=== PATIENT | male | born 1990 | race Caucasian/White ===

== ENCOUNTER 2017-03-21 09:17 | Inpatient (IN) | payer MEDICAID ==
[~2017-03-21] VITALS: Ht 182.9 cm; Wt 59.9 kg
[2017-03-21] MEDS ORDERED: HALOPERIDOL LACTATE 5 MG/ML VIAL IM ONE (09:30)
[2017-03-21] MEDS ORDERED: DiphenhydrAMINE HCL 50 MG/ML VIAL IM ONE (09:30)
[2017-03-21] MEDS ORDERED: LORazepam 2 MG/ML VIAL IM ONE (09:30)
[2017-03-21 09:37] LABS: GLUCOSE,POINT OF CARE 91 MG/DL (70-110)
[2017-03-21 09:57] LABS: BASOPHILS % (AUTO) 0.6 % (0.0-2.0); EOSINOPHILS % (AUTO) 0.2 % (1.0-6.0); HEMATOCRIT 47.7 % (41-53); HEMOGLOBIN 15.6 g/dL (13.5-17.5); LYMPHOCYTES # (AUTO) 1.2 K/uL (1.0-4.8); MEAN CORPUSCULAR HEMOGLOBIN 29.2 pg (26.0-34.0); MEAN CORPUSCULAR HGB CONC 32.7 G/dL (31.0-37.0); MEAN CORPUSCULAR VOLUME 89 fL (80-100); MONOCYTES # (AUTO) 0.8 K/uL (0.1-1.0); MONOCYTES % (AUTO) 8.6 % (2.0-9.0); NEUTROPHILS # (AUTO) 7.3 K/uL (1.8-7.7); NEUTROPHILS % (AUTO) 77.6 % (40.0-70.0); PLATELET COUNT (AUTO) 296 K/uL (150-450); RED BLOOD CELL COUNT(AUTO) 5.34 MIL/uL (4.50-5.90); RED CELL DISTRIBUTION WIDTH 12.6 % (11.5-14.5); WHITE BLOOD COUNT (AUTO) 9.4 K/uL (4.5-11.0)
[2017-03-21 10:05] LABS: ANION GAP 14 mmol/L (8-16); CALCIUM, TOTAL 9.6 mg/dL (8.8-10.5); CARBON DIOXIDE 25 mmol/L (22-29); CHLORIDE 99 mmol/L (98-107); CREATININE 1.18 mg/dL (0.60-1.30); GLOMERULAR FILTR. RATE CALC > 60 mL/min (>60); POTASSIUM 3.5 mmol/L (3.5-5.1); SODIUM SERUM 138 mmol/L (136-145); UREA NITROGEN, BLOOD 18 mg/dL (7-18)
[2017-03-21 10:11] LABS: ALANINE AMINOTRANSFERASE 59 U/L (12-78); ALBUMIN 4.7 g/dL (3.4-5.0); ASPARTATE AMINOTRANSFERASE 27 U/L (15-37); BILIRUBIN,TOTAL 1.7 mg/dL (0.1-1.0); TOTAL PROTEIN, SERUM 8.4 g/dL (6.4-8.2)
[2017-03-21] MEDS ORDERED: ZOLPIDEM TARTRATE 10 MG TABLET PO PRN (10:15)
[2017-03-21] MEDS ORDERED: HALOPERIDOL 5 MG TABLET PO PRN (10:15)
[2017-03-21] MEDS ORDERED: LORazepam 2 MG TABLET PO PRN (10:15)
[2017-03-21 14:11] VITALS: BP 127/84
[2017-03-22 05:58] VITALS: BP 123/80
[2017-03-22 09:06] VITALS: BP 153/108
[2017-03-22] MEDS ORDERED: ACETAMINOPHEN 325 MG TABLET PO PRN (13:00)
[2017-03-22] MEDS ORDERED: IBUPROFEN 600 MG TABLET PO PRN (13:00)
[2017-03-22 13:35] VITALS: BP 142/84
[2017-03-22] MEDS: CloNIDine HCL 0.2 MG TABLET PO SCH ×2 (13:37→17:00)
[2017-03-22 17:12] VITALS: BP 117/72
[2017-03-22] MEDS: OLANZapine 5 MG TABLET PO SCH (20:58)
[2017-03-23 04:00] VITALS: BP 130/94
[2017-03-23 08:04] VITALS: BP 130/84
[2017-03-23] MEDS: CloNIDine HCL 0.2 MG TABLET PO SCH ×2 (08:25→17:00)
[2017-03-23 16:47] VITALS: BP 125/70
[2017-03-23] MEDS: OLANZapine 5 MG TABLET PO SCH (21:05)
[2017-03-24 08:29] VITALS: BP 149/92
[2017-03-24] MEDS: CloNIDine HCL 0.2 MG TABLET PO SCH (09:03)
[2017-03-24] MEDS ORDERED: CLON.1 PO (11:16)
[2017-03-24] MEDS ORDERED: OLAN5TAB2 PO (11:17)
[2017-03-24] MEDS ORDERED: CloNIDine HCL 0.1 MG TABLET PO SCH (17:00)
== END 2017-03-24 14:40 | disposition home or self-care (01) | DRG 751 ==
LOC: EMS 09:20 → 3EC 12:40
DX: F29 Unspecified psychosis not due to a substance or known physiological condition (principal); Z78.1 Physical restraint status; F41.9 Anxiety disorder, unspecified; F12.90 Cannabis use, unspecified, uncomplicated; F19.90 Other psychoactive substance use, unspecified, uncomplicated; F17.210 Nicotine dependence, cigarettes, uncomplicated; Z71.51 Drug abuse counseling and surveillance of drug abuser
CPT/HCPCS: 82962; 96372; 99291; G0480; J1200; J1630; J2060

== ENCOUNTER 2018-02-20 14:51 | Inpatient (IN) | payer MEDICAID, OTHER ==
[~2018-02-20] VITALS: Ht 175.3 cm; Wt 63.5 kg
[~2018-02-20 14:51] MED LIST: CLON-570 PO; OLAN5TAB2 PO
[2018-02-20 15:46] LABS: BASOPHILS % (AUTO) 0.5 % (0.0-2.0); EOSINOPHILS % (AUTO) 0 % (1.0-6.0); HEMATOCRIT 44.2 % (41-53); HEMOGLOBIN 15.1 g/dL (13.5-17.5); LYMPHOCYTES # (AUTO) 1.6 K/uL (1.0-4.8); MEAN CORPUSCULAR HEMOGLOBIN 29.1 pg (26.0-34.0); MEAN CORPUSCULAR HGB CONC 34.2 G/dL (31.0-37.0); MEAN CORPUSCULAR VOLUME 85 fL (80-100); MONOCYTES # (AUTO) 0.6 K/uL (0.1-1.0); MONOCYTES % (AUTO) 7.7 % (2.0-9.0); NEUTROPHILS # (AUTO) 5.9 K/uL (1.8-7.7); NEUTROPHILS % (AUTO) 72.8 % (40.0-70.0); PLATELET COUNT (AUTO) 310 K/uL (150-450); RED CELL DISTRIBUTION WIDTH 13.5 % (11.5-14.5)
[2018-02-20 16:03] LABS: ANION GAP 8 mmol/L (8-16); CALCIUM, TOTAL 9.4 mg/dL (8.8-10.5); CARBON DIOXIDE 30 mmol/L (22-29); CHLORIDE 102 mmol/L (98-107); CREATININE 0.82 mg/dL (0.60-1.30); GLOMERULAR FILTR. RATE CALC > 60 mL/min (>60); GLUCOSE,RANDOM 101 mg/dL (70-110); SODIUM SERUM 140 mmol/L (136-145); UREA NITROGEN, BLOOD 10 mg/dL (7-18)
[2018-02-20 16:06] LABS: ALANINE AMINOTRANSFERASE 31 U/L (12-78); ALBUMIN 4.3 g/dL (3.4-5.0); ALKALINE PHOSPHATASE 108 U/L (46-116); ASPARTATE AMINOTRANSFERASE 18 U/L (15-37); BILIRUBIN,TOTAL 0.4 mg/dL (0.1-1.0); TOTAL PROTEIN, SERUM 7.8 g/dL (6.4-8.2)
[2018-02-20] MEDS ORDERED: HALOPERIDOL LACTATE 5 MG/ML VIAL IM ONE (16:15)
[2018-02-20] MEDS ORDERED: DiphenhydrAMINE HCL 50 MG/ML VIAL IM ONE (16:15)
[2018-02-20] MEDS ORDERED: LORazepam 2 MG/ML VIAL IM ONE (16:15)
[2018-02-20 19:41] LABS: AMPHET/METH SCREEN,URINE NEGATIVE (NEGATIVE); BARBITURATE SCREEN, URINE NEGATIVE (NEGATIVE); BENZODIAZEPINES SCREEN,URINE NEGATIVE (NEGATIVE); CANNABINOID SCREEN,URINE POSITIVE (NEGATIVE); COCAINE SCREEN,URINE NEGATIVE (NEGATIVE); METHADONE SCREEN, URINE NEGATIVE (NEGATIVE); OPIATE SCREEN,URINE NEGATIVE (NEGATIVE)
[2018-02-20 19:43] LABS: PHENCYCLIDINE SCREEN,URINE NEGATIVE (NEGATIVE)
[2018-02-21] MEDS: HALOPERIDOL 5 MG TABLET PO PRN ×3 (01:49→15:14)
[2018-02-21] MEDS: LORazepam 2 MG TABLET PO PRN ×3 (01:49→15:14)
[2018-02-21 02:16] LABS: CHOL/HDL RATIO 3.4 (4.2-7.3); CHOLESTEROL 188 mg/dL (131-200); HDL CHOLESTEROL 56 mg/dL (40-60); LDL CHOL (CALC.) 121 mg/dL (0-130); TRIGLYCERIDES 57 mg/dL (15-150)
[2018-02-21] MEDS: ZOLPIDEM TARTRATE 10 MG TABLET PO PRN (19:16)
[2018-02-22] MEDS: LORazepam 2 MG TABLET PO PRN ×3 (00:43→16:09)
[2018-02-22] MEDS ORDERED: INFLUENZA VIRUS VACCINE QVS 2017-18 (3YR+)/PF 60 MCG/0.5 ML SYRINGE IM ONE (01:30)
[2018-02-22 01:39] VITALS: BP 121/72
[2018-02-22 08:10] VITALS: BP 140/69
[2018-02-22] MEDS: HALOPERIDOL 5 MG TABLET PO PRN ×2 (09:16→16:09)
[2018-02-22 16:00] VITALS: BP 118/83
[2018-02-22] MEDS ORDERED: OLANZapine 10 MG RAPDIS TABLET PO SCH (21:00)
[2018-02-23 05:49] VITALS: BP 122/81
[2018-02-23 08:08] VITALS: BP 137/80
[2018-02-23] MEDS: LORazepam 2 MG TABLET PO PRN ×2 (12:52→16:52)
[2018-02-23] MEDS: HALOPERIDOL 5 MG TABLET PO PRN ×2 (12:52→16:52)
[2018-02-23 16:00] VITALS: BP 133/69
[2018-02-23] MEDS: OLANZapine 10 MG RAPDIS TABLET PO SCH (20:39)
[2018-02-23] MEDS: ZOLPIDEM TARTRATE 10 MG TABLET PO PRN (20:39)
[2018-02-24 05:10] VITALS: BP 149/87
[2018-02-24] MEDS: OLANZapine 10 MG RAPDIS TABLET PO SCH ×2 (08:00→20:22)
[2018-02-24 08:31] VITALS: BP_SYST 136; BP_SYST 144; BP_DIAS 60; BP_DIAS 84
[2018-02-24] MEDS: LORazepam 2 MG TABLET PO PRN (16:01)
[2018-02-24] MEDS: HALOPERIDOL 5 MG TABLET PO PRN (16:01)
[2018-02-24 16:07] VITALS: BP 140/88
[2018-02-24] MEDS: ZOLPIDEM TARTRATE 10 MG TABLET PO PRN (20:22)
[2018-02-25 07:15] VITALS: BP 129/75
[2018-02-25 08:09] VITALS: BP 138/71
[2018-02-25] MEDS: OLANZapine 10 MG RAPDIS TABLET PO SCH ×2 (08:15→20:40)
[2018-02-25] MEDS: LORazepam 2 MG TABLET PO PRN (13:21)
[2018-02-25 16:00] VITALS: BP 119/74
[2018-02-25] MEDS: ZOLPIDEM TARTRATE 10 MG TABLET PO PRN (20:40)
[2018-02-26 00:48] VITALS: BP 121/91
[2018-02-26 08:27] VITALS: BP 125/65
[2018-02-26] MEDS: OLANZapine 10 MG RAPDIS TABLET PO SCH ×2 (08:39→20:28)
[2018-02-26 16:06] VITALS: BP 122/70
[2018-02-26] MEDS: LORazepam 2 MG TABLET PO PRN (16:08)
[2018-02-27 00:19] VITALS: BP 124/76
[2018-02-27 08:06] VITALS: BP 120/65
[2018-02-27] MEDS: LORazepam 2 MG TABLET PO PRN ×3 (08:16→20:33)
[2018-02-27] MEDS: OLANZapine 10 MG RAPDIS TABLET PO SCH (08:16)
[2018-02-27 16:08] VITALS: BP 108/69
[2018-02-27] MEDS: OLANZapine 5 MG RAPDIS TABLET PO SCH (20:33)
[2018-02-28 05:52] VITALS: BP 120/73
[2018-02-28 08:00] VITALS: BP 125/70
[2018-02-28] MEDS: OLANZapine 5 MG RAPDIS TABLET PO SCH ×2 (08:08→20:18)
[2018-02-28 16:12] VITALS: BP 119/79
[2018-02-28] MEDS: HALOPERIDOL 5 MG TABLET PO PRN (16:32)
[2018-02-28] MEDS: LORazepam 2 MG TABLET PO PRN (16:32)
[2018-03-01 05:49] VITALS: BP 122/78
[2018-03-01 08:17] VITALS: BP 139/71
[2018-03-01] MEDS: OLANZapine 5 MG RAPDIS TABLET PO SCH ×2 (09:21→20:12)
[2018-03-01] MEDS: LORazepam 2 MG TABLET PO PRN (15:41)
[2018-03-01] MEDS: HALOPERIDOL 5 MG TABLET PO PRN (15:41)
[2018-03-01 16:25] VITALS: BP 112/69
[2018-03-01] MEDS: ZOLPIDEM TARTRATE 10 MG TABLET PO PRN (21:10)
[2018-03-02 02:59] VITALS: BP 116/78
[2018-03-02 08:10] VITALS: BP 131/68
[2018-03-02] MEDS: LORazepam 2 MG TABLET PO PRN ×2 (08:43→16:32)
[2018-03-02] MEDS: OLANZapine 5 MG RAPDIS TABLET PO SCH ×2 (08:43→21:00)
[2018-03-02 16:10] VITALS: BP 143/81
[2018-03-02] MEDS: ZOLPIDEM TARTRATE 10 MG TABLET PO PRN (21:00)
[2018-03-03 00:35] VITALS: BP 105/81
[2018-03-03] MEDS: HALOPERIDOL 5 MG TABLET PO PRN (06:11)
[2018-03-03] MEDS: LORazepam 2 MG TABLET PO PRN ×3 (06:11→16:19)
[2018-03-03 08:17] VITALS: BP 137/75
[2018-03-03] MEDS: OLANZapine 5 MG RAPDIS TABLET PO SCH ×2 (08:32→20:33)
[2018-03-03 16:24] VITALS: BP 114/72
[2018-03-03] MEDS: ZOLPIDEM TARTRATE 10 MG TABLET PO PRN (20:33)
[2018-03-04 03:33] VITALS: BP 102/73
[2018-03-04] MEDS: OLANZapine 5 MG RAPDIS TABLET PO SCH ×2 (08:12→20:38)
[2018-03-04] MEDS: HALOPERIDOL 5 MG TABLET PO PRN (08:12)
[2018-03-04] MEDS: LORazepam 2 MG TABLET PO PRN ×2 (08:12→16:36)
[2018-03-04 08:20] VITALS: BP 132/70
[2018-03-04 16:08] VITALS: BP 120/61
[2018-03-04] MEDS: ZOLPIDEM TARTRATE 10 MG TABLET PO PRN (20:38)
[2018-03-05] MEDS: HALOPERIDOL 5 MG TABLET PO PRN (05:37)
[2018-03-05 05:47] VITALS: BP 133/70
[2018-03-05] MEDS: LORazepam 2 MG TABLET PO PRN ×2 (08:39→16:47)
[2018-03-05] MEDS: OLANZapine 5 MG RAPDIS TABLET PO SCH ×2 (08:39→20:31)
[2018-03-05] MEDS: DIVALPROEX SODIUM 500 MG ER TABLET PO SCH ×2 (08:39→16:47)
[2018-03-05 08:49] VITALS: BP 130/75
[2018-03-05 16:00] VITALS: BP 120/83
[2018-03-05] MEDS: ZOLPIDEM TARTRATE 10 MG TABLET PO PRN (22:08)
[2018-03-06 07:01] VITALS: BP 121/79
[2018-03-06 08:00] VITALS: BP 127/65
[2018-03-06] MEDS: DIVALPROEX SODIUM 500 MG ER TABLET PO SCH (08:23)
[2018-03-06] MEDS: LORazepam 2 MG TABLET PO PRN (08:24)
[2018-03-06] MEDS: HALOPERIDOL 5 MG TABLET PO PRN (08:24)
[2018-03-06] MEDS: OLANZapine 5 MG RAPDIS TABLET PO SCH (08:24)
[2018-03-06] MEDS ORDERED: DIVA500T52 PO (11:01)
[2018-03-06] MEDS ORDERED: OLAN15TA2 PO (11:01)
== END 2018-03-06 12:10 | disposition home or self-care (01) | DRG 750 ==
LOC: EMS 14:53 → B3A 02-21 22:14
PROVIDERS: ADMIT Psychiatry & Neurology Child & Adolescent Psychiatry; ATTEND Psychiatry & Neurology Child & Adolescent Psychiatry
DX: F20.1 Disorganized schizophrenia (principal); Z78.1 Physical restraint status; F17.200 Nicotine dependence, unspecified, uncomplicated; F12.10 Cannabis abuse, uncomplicated; F41.9 Anxiety disorder, unspecified; F10.10 Alcohol abuse, uncomplicated; R03.0 Elevated blood-pressure reading, without diagnosis of hypertension; Z71.6 Tobacco abuse counseling; Z79.899 Other long term (current) drug therapy; Z91.14 Patient's other noncompliance with medication regimen
CPT/HCPCS: 90471; 96372; 99285; 99406; G0480; J1200; J1630; J2060